=== PATIENT | male | born 1955 | race Caucasian/White ===

== ENCOUNTER → 2016-12-28 | Outpatient (CLI) | payer BC ==
--- NOTE | 2016-12-28 17:22 | PCVCIMAG ---
APPROVED REPORT Exam: Stress Echocardiogram Indication: Dyspnea, Abn Calcium score 305, Fam hx CAD Patient Location: Echo lab Stress Nurse: Tiffany Perry RN Status: routine Ht: 5 ft 9 in HR: 51 bpm BP: 116/74 mmHg Rhythm: Bradycardia Medical History Cardiac Risk Factors: FHX of CAD Procedure The patient underwent an Exercise Stress Test using the Rocky Protocol. Blood pressure, heart rate, and EKG were monitored. An Echocardiogram was performed by range technician in four stages in quad fashion. At peak stress, four selected images were obtained and placed side by side with resting images for comparison. Stress Test Details Stress Test: Exercise stress testing was performed using a Rocky protocol. HR Resting HR: 51 bpmMax Heart Rate (APMHR): 159 bpm Max HR Achieved: 157 bpmTarget HR (85% APMHR): 135 bpm % of APMHR: 98 Recovery HR: 79 bpm HR response to stress: Normal HR response to stress BP Resting BP: 116/74 mmHg Max BP: 180/82 mmHg Recovery BP: 136/80 mmHg ECG Resting ECG: Sinus Rhythm Stress ECG: Sinus Rhythm with PACs ST Change: Nonspecific ST changes Arrhythmia: None Recovery ECG: Sinus Rhythm Recovery Arrhythmia: None Clinical Reason for Termination: Maximal effort Exercise duration: 14 min 10 sec Highest Stage Achieved: Stage 5: 5.0 mph at 18% grade. Exercise capacity: 17.2 METs Overall Exercise Capacity for Age: Excellent Pre-Stress Echo The resting Echocardiogram showed normal left ventricular contractility with an estimated Ejection Fraction of about >55%. Normal wall motion in all segments on baseline images. Post-Stress Echo The stress Echocardiogram showed normal left ventricular contractility with an estimated Ejection Fraction of about 65%. Normal augmentation of wall motion in all segments on post stress images. Clinical Equivocal inferior and lateral ECG evidence for ischemia. Conclusion Clinical Response: Non-ischemic Exercise Capacity: Superior Stress ECG Response: Equivocal Stress Echo Images: Non-ischemic Other Information Study Quality: Good
== END | disposition home or self-care (01) ==
LOC: PCVCIMAG 15:53
PROVIDERS: ATTEND Internal Medicine Cardiovascular Disease
DX: I25.10 Atherosclerotic heart disease of native coronary artery without angina pectoris (principal); I49.1 Atrial premature depolarization; R93.1 Abnormal findings on diagnostic imaging of heart and coronary circulation; E78.5 Hyperlipidemia, unspecified; Z82.49 Family history of ischemic heart disease and other diseases of the circulatory system
CPT/HCPCS: 93325; 93351